=== PATIENT | female | born 1945 | race Caucasian/White ===

== ENCOUNTER 2016-12-03 07:01 | Inpatient (IN) | payer OTHER ==
[~2016-12-03] VITALS: Ht 154.9 cm; Wt 49.0 kg
[2016-12-03] VITALS (42 sets, daily range): BP systolic 85–114; BP diastolic 50–63
[2016-12-03] MEDS ORDERED: methylPREDNISolone SOD SUCC 125 MG/2 ML VIAL IV ONE (07:15)
[2016-12-03 07:21] LABS: ABG BASE EXCESS 6.9 mmol/L; ABG HCO3 30.8 mmol/L; ABG PCO2 41.1 mmHg (35.0-45.0); ABG PH 7.492 (7.350-7.450); ABG PO2 80.3 mmHg (75.0-100.0); ABG SITE LEFT RADIAL; ABG TOTAL HEMOGLOBIN 13.1 G/dL (12.0-16.0); COHb 1.7 % (0.5-1.5); MetHb 0.3 % (0.0-1.5); O2Hb 94.4 % (94.0-97.0)
[2016-12-03] MEDS ORDERED: methylPREDNISolone SOD SUCC 125 MG/2 ML VIAL ONE (07:27)
[2016-12-03 07:35] LABS: BASOPHILS # (AUTO) 0.2 K/uL (0.0-0.2); BASOPHILS % (AUTO) 0.5 % (0.0-2.0); EOSINOPHILS # (AUTO) 0.7 K/uL (0.0-0.7); EOSINOPHILS % (AUTO) 2.2 % (0.0-7.0); HEMATOCRIT 38.3 % (37.0-47.0); RED CELL DISTRIBUTION WIDTH 15.3 % (11.5-14.5)
[2016-12-03] MEDS ORDERED: ASPI81TA31 PO (07:37)
[2016-12-03] MEDS ORDERED: NIFE60TA69 PO (07:37)
[2016-12-03] MEDS ORDERED: OXYC-162 PO (07:37)
[2016-12-03] MEDS ORDERED: GLIP5TAB13 PO (07:37)
[2016-12-03] MEDS ORDERED: KETO5DRO29 OP (07:37)
[2016-12-03] MEDS ORDERED: PRED20TA PO (07:37)
[2016-12-03] MEDS ORDERED: OMEP20CA10 PO (07:37)
[2016-12-03] MEDS ORDERED: BECL8.7A6 INH (07:37)
[2016-12-03] MEDS ORDERED: FURO20TA4 PO (07:37)
[2016-12-03] MEDS ORDERED: IBAN150T8 PO (07:37)
[2016-12-03] MEDS ORDERED: METH2.5T PO (07:37)
[2016-12-03] MEDS ORDERED: OXYC-128 PO (07:39)
[2016-12-03 07:41] LABS: HEMOGLOBIN 12.5 g/dL (12.0-16.0); LYMPHOCYTES # (AUTO) 3.6 K/uL (0.8-4.8); LYMPHOCYTES % (AUTO) 11.9 % (20.5-51.5); MEAN CORPUSCULAR HGB CONC 33 g/dL (32.0-37.0); MONOCYTES # (AUTO) 1.6 K/uL (0.1-1.30); MONOCYTES % (AUTO) 5.2 % (0.0-11.0); NEUTROPHILS # (AUTO) 24.2 K/uL (1.8-8.9); NEUTROPHILS % (AUTO) 80.2 % (38.5-71.5); PLATELET COUNT (AUTO) 260 K/uL (150-450); RED BLOOD CELL COUNT(AUTO) 4.45 MIL/uL (4.20-5.40)
--- NOTE | 2016-12-03 07:42 | NUR ---
PT WAS BROUGHT TO ER AT THIS TIME. PT ABG WAS DONE AND DUE TO RESULTS AND LOW SPO2 ON ROOM AIR PT WAS INTUBATED. PT AT THIS TIME REMAINED ON 15LPM VIA NRB. PT PT WAS INTUBATED BY ER MD DURHAM ET-TUBE 7.5 AT 22CM CENTER LIP LINE. PT WAS PLACE ON GUAN VENT WITH SETTING OF AC20, VT 550, PEEP 5 FIO2 100%. PT AT THIS TIME TOLERATING VENT WELL WILL MILD PIP PRESSURE. PT WAS SUCTION, HME IN PLACE. PT PT VENT ALARM ON AND AUDIBLE AMBU-BAG AT BED SIDE. WILL CONTINUE TO MONITOR PT. WILL REPEAT BAG POST INTUBATION.
[2016-12-03 07:45] LABS: WHITE BLOOD COUNT (AUTO) 30.3 K/uL (4.0-11.2)
[2016-12-03 07:58] LABS: CALCIUM 8.8 mg/dL (8.5-10.1); CREATININE 0.8 mg/dL (0.6-1.3); POTASSIUM 2.9 mmol/L (3.5-5.1)
[2016-12-03] MEDS ORDERED: ETOMIDATE 20 MG/10 ML VIAL IV ONE (08:00)
[2016-12-03] MEDS ORDERED: SUCCINYLCHOLINE CHLORIDE 200 MG/10 ML VIAL IV ONE (08:00)
[2016-12-03] MEDS ORDERED: PROPOFOL 100 ML ONE ×2 (08:07→10:21)
[2016-12-03 08:09] LABS: ALBUMIN 2.8 g/dL (3.4-5.0); BILIRUBIN,DIRECT 0.2 mg/dL (0.0-0.2); BILIRUBIN,TOTAL 0.8 mg/dL (0.2-1.0); TOTAL PROTEIN, SERUM 8.1 g/dL (6.4-8.2)
[2016-12-03] MEDS ORDERED: PROPOFOL 100 ML IV ONE (08:09)
[2016-12-03 08:10] LABS: TROPONIN I 0.266 ng/mL (0.00-0.056)
[2016-12-03] MEDS ORDERED: PROPOFOL 200 MG/20 ML BOTTLE IV ONE (08:15)
[2016-12-03] MEDS ORDERED: GENTAMICIN SULFATE INJ 80 MG in IV DEXTROSE 5% 100 ML IV ONE (08:30)
[2016-12-03] MEDS ORDERED: METRONIDAZOLE 500 MG/NS 100ML 100 ML IV ONE ×2 (08:30→09:00)
[2016-12-03] MEDS ORDERED: MEROPENEM 1,000 MG in IV NORMAL SALINE 250 ML IV ONE (08:30)
[2016-12-03 08:31] LABS: ABG BASE EXCESS 0.1 mmol/L; ABG HCO3 25.4 mmol/L; ABG PCO2 43.6 mmHg (35.0-45.0); ABG PH 7.383 (7.350-7.450); ABG PO2 146.8 mmHg (75.0-100.0); ABG SITE RIGHT RADIAL; ABG TOTAL HEMOGLOBIN 12.4 G/dL (12.0-16.0); COHb 1.1 % (0.5-1.5); MetHb 0.3 % (0.0-1.5); O2Hb 97.6 % (94.0-97.0); VENT MODE VENT - A/C; VT, ABG 550 mL
[2016-12-03 08:31] LABS: *BILIRUBIN,URIN NEGATIVE (NEGATIVE); *BLOOD, URINE Trace-intact (NEGATIVE); *CLARITY,URINE SLIGHTLY CLOUDY (CLEAR); *COLOR,URINE YELLOW (YELLOW); *KETONES,URINE NEGATIVE (NEGATIVE); *PROTEIN,URINE 2+ (NEGATIVE); LEUKOCYTE ESTERASE ,URINE NEGATIVE (NEGATIVE); NITRITE, URINE NEGATIVE (NEGATIVE); UGLUCOSE NEGATIVE (NEGATIVE)
--- NOTE | 2016-12-03 08:34 | NUR ---
PT ABG POST INTUBATION WAS DONE AND DUE TO RESULTS PT FIO2 WAS TITRATED DOWN PER MD REQUEST TO 80% RN AWARE. WILL CONTINUE TO MONITOR PT. NO DISTRESS NOTED AT THIS TIME.
[2016-12-03] MEDS ORDERED: FENTANYL CITRATE 100 MCG/2 ML AMPUL ONE (08:35)
[2016-12-03 08:39] LABS: BACTERIA,URINE FEW /HPF (NONE SEEN); MUCUS,URINE FEW /LPF (0-FEW); RBC,URINE 0-3 /HPF (0-3); SQUAMOUS EPITHELIAL CELL,UR FEW /HPF (NONE SEEN); WBC,URINE 0-3 /HPF (0-3)
[2016-12-03 08:54] LABS: LACTIC ACID 2.9 mmol/L (0.4-2.0)
[2016-12-03] MEDS ORDERED: SERT50TA14 PO (08:59)
[2016-12-03] MEDS ORDERED: IV NORMAL SALINE 1000 ML BAG IV ONE ×2 (09:00→10:15)
--- NOTE | 2016-12-03 09:16 | NUR ---
BP is trending down, Dr Wise notified.
--- NOTE | 2016-12-03 09:26 | NUR ---
Patient is for central line insertion per MD.
[2016-12-03] MEDS ORDERED: NOREPINEPHRINE BITARTRATE 8 MG in IV DEXTROSE 5% 500 ML IV ONE (10:15)
--- NOTE | 2016-12-03 10:50 | NUR ---
RECIEVED REPORT FROM JORDAN IN ER.
--- NOTE | 2016-12-03 10:59 | NUR ---
Patient left ER with 2 RN's and 2 resp therapists in critical condition. Transport cardiac cath lab manager is connected to the patient- alarms set,on & audible. IVF-saline bolus is still infusing, Levophed drip Propofol drip and antibiotic medicines are also infusing enroute to CCU.
[2016-12-03] MEDS ORDERED: FENTANYL CITRATE 100 MCG/2 ML AMPUL IV PRN (11:15)
[2016-12-03 11:16] LABS: ANISOCYTOSIS 1+; BAND % (MANUAL) 1 % (0-10); EOSINOPHILS % (MANUAL) 1 % (0-8); LYMPHOCYTES % (MANUAL) 11 % (20-40); MONOCYTES % (MANUAL) 6 % (2-10); NEUTROPHILS % (MANUAL) 81 % (42-75); PLATELET ESTIMATE ADEQUATE
--- NOTE | 2016-12-03 11:50 | NUR ---
ADMIT PT FROM ER [facility]IA [facility] TO CCU5. A 70 YR OLD FEMALE WITH CHIEF C/O SOB THRROUGH THE NIGHT. PT IS INTUBATED AND SEDATED BUT PT IS AROUSABLE TO DEEP STIMULATION.
--- NOTE | 2016-12-03 12:00 | NUR ---
HR IS SR. PT ON LEVOPHED DRIP AT 2MCG/MIN VIA THE FEMORAL LINE. PT ALSO ON PROPOFOL DRIPN AT 50MCG/KG/MIN.. VENT SETTING IS AC-20. VT-550, FIO2-100%. LUNG HAS SCATTERED RALES. SUCTIONED PINKISH TINGED SECRETIONS ORALLY AND VIA THE ETT. AFEBRILE. SBP UNDER CONTROL.
--- NOTE | 2016-12-03 14:00 | NUR ---
SEEN AND EXAMINED BY DR OEJDA. INFORMED HIM ABOUT THE LOW POTASSIUM RESULT.
--- NOTE | 2016-12-03 15:13 | NUR ---
PT TOLERATING VENT WELL NO DISTRESS NOTED NO CHANGES MADE AT THIS TIME . PT CARE TRANSFER TO RT NAZIA AND RT LEWIS. RT AWARE OF ABG AT [address] ORDER. WILL GIVE REPORT REGARDING ORDERS TO RT CONTINUING CARE.
[2016-12-03] MEDS ORDERED: NOREPINEPHRINE BITARTRATE 8 MG in IV DEXTROSE 5% 500 ML IV PRN (15:45)
--- NOTE | 2016-12-03 16:00 | NUR ---
SEEN AND EXAMINED BY DR DESOUZA WITH NEW ORDERS. CONSENT SIGNED BY THE FAMILY FOR THE CTA ANGIOGRAM. PENDING TEST AWAITING THE AVAILABITITY OF THE INJECTOR MACHINE.
--- NOTE | 2016-12-03 16:37 | NUR ---
VENT CHANGES DONE PER MD ORDERS. CALLED DR. DESOUZA TO VERIFY VENT CHANGES TO AC 28, VT 400, 75% FIO2, AND TO KEEP PEEP +5. PATIENT IS TOLERATING VENT SETTINGS WELL AT THIS TIME. SPO2 RANGES 99-100%. ABG ORDER FOR 1700. WILL CONTINUE TO MONITOR.
[2016-12-03] MEDS: PROPOFOL 100 ML IV PRN ×2 (16:44→23:16)
[2016-12-03 17:35] LABS: ABG HCO3 25.6 mmol/L; ABG PCO2 40.7 mmHg (35.0-45.0); ABG PH 7.417 (7.350-7.450); ABG PO2 179.2 mmHg (75.0-100.0); ABG SITE LEFT RADIAL; ABG TOTAL HEMOGLOBIN 12.8 G/dL (12.0-16.0); MetHb 0.3 % (0.0-1.5); O2Hb 98.2 % (94.0-97.0); VENT MODE VENT - A/C; VT, ABG 400 mL
--- NOTE | 2016-12-03 18:00 | NUR ---
SEEN AND EXAMINED BY DR MCDONALD WITH NEW ORDERS.
[2016-12-03] MEDS ORDERED: NORMAL SALINE FLUSH 10 ML DISP.SYRIN ONE (18:04)
[2016-12-03] MEDS ORDERED: IOHEXOL 350 100 ML INFUS..BTL ONE (18:04)
[2016-12-03] MEDS ORDERED: IV NORMAL SALINE 250 ML IV ONE (18:04)
--- NOTE | 2016-12-03 18:25 | NUR ---
PT BROUGHT DOWN TO CT FOR CTA ANGIOGRAM VIA BED. CONDITION IS STABLE.
--- NOTE | 2016-12-03 18:35 | NUR ---
PT TRANSFERRED FOR CT-SCAN WITH NO ISSUES NOTED. ASSISTED BY RT MANDUJANO. NO COMPLICATIONS DURING TRANSPORT TO AND FROM CT-SCAN. NO S/S OF RESPIRATORY DISTRESS DURING TRANSPORT. AMBU BAG AT BEDSIDE.
[2016-12-03] MEDS: POTASSIUM CHLORIDE 50 ML IV SCH ×4 (18:50→22:05)
--- NOTE | 2016-12-03 19:30 | NUR ---
Report received. Patient orally intubated and to mechanical ventilator. Settings as follows: GX=231 ml, FIO2=75%, Ac=28 and PEEP=5 cm. Sedated with Diprivan drip @ 50 mcg/kg/min. On Levophed drip for BP support. Assessment completed. Addendum: 12/04/16 at 0002 by SELENA WHEELER RN Amended: Links added.
--- NOTE | 2016-12-03 19:35 | NUR ---
Pt received on Bagley vent with current settings of AC 28, VT 400, FiO2 75%, Peep +5. Per order to keep saturation above 92%, titrated FiO2 to 65% at this time. Saturation steady at 99%. RN Dawna aware of change. No other changes made to vent settings, pt tolerating settings well. Pt is orally intubated with a 7.5 ETT, secured with [place] Fast at approximately 22cm at the lip line. ETT is patent. Suctioned pt with minimal amount of pale secretions. Oral care done. HME changed. Vent alarm parameters checked, functioning and audible. Will continue to monitor pt throughout shift.
--- NOTE | 2016-12-03 19:45 | NUR ---
Suctioned by Mahendra LEON; ETT aspirate obtained. FIO2 titrated down to 65% to keep sat above 92%. Sat 98-100% on 75%. Specimen sent to lab for C/S. Addendum: 12/04/16 at 0005 by SELENA WHEELER RN Amended: Links added.
--- NOTE | 2016-12-03 20:06 | NUR ---
Dr. Holloway radiologist called with CTA chest results. Patient's sister visited. Addendum: 12/03/16 at 2358 by SELENA WHEELER RN Amended: Links added. Addendum: 12/04/16 at 0002 by SELENA WHEELER RN Amended: Links added.
--- NOTE | 2016-12-03 20:30 | NUR ---
Call placed to Dr. Boyd's exchange re: CTA results. Addendum: 12/04/16 at 0007 by SELENA WHEELER RN Amended: Links added. Addendum: 12/04/16 at 0022 by SELENA WHEELER RN Amended: Links added. Addendum: 12/04/16 at 0026 by SELENA WHEELER RN Amended: Links added. Addendum: 12/04/16 at 0031 by SELENA WHEELER RN Amended: Links added.
[2016-12-03] MEDS ORDERED: ACETAMINOPHEN 650 MG SUPP.RECT RC PRN (20:45)
[2016-12-03] MEDS ORDERED: POTASSIUM CHLORIDE 20 MEQ in IV D5/ 0.9% NACL 1,000 ML IV PRN (20:45)
[2016-12-03] MEDS ORDERED: ONDANSETRON 4 MG/2 ML VIAL IV PRN (20:45)
[2016-12-03] MEDS ORDERED: MORPHINE SULFATE 2 MG/1 ML DISP.SYRIN IV PRN (20:45)
--- NOTE | 2016-12-03 20:50 | NUR ---
Dr. Cook division plant engineer for Dr. Boyd called back. Results of CTA relayed to him. No orders given. Addendum: 12/03/16 at 2100 by SELENA WHEELER RN Amended: Links added.
[2016-12-03] MEDS ORDERED: Z GUARD REMEDY PASTE 57 GM TUBE TOP PRN (21:00)
[2016-12-03] MEDS ORDERED: MEROPENEM 1 G in IV NORMAL SALINE 100 ML IV SCH (21:00)
[2016-12-03] MEDS ORDERED: ENOXAPARIN SODIUM 40 MG/0.4 ML DISP.SYRIN SQ SCH (21:00)
[2016-12-03] MEDS: Z GUARD REMEDY PASTE 57 GM TUBE TOP SCH (21:03)
--- NOTE | 2016-12-03 21:05 | NUR ---
Spoke to Dr. Cook again re: further results of CTA chest which is large pericardial effusion 2.3 cm. Advised RN to notify cardiology of result. Call placed to Dr. Moore. Addendum: 12/04/16 at 0026 by SELENA WHEELER RN Amended: Links added. Addendum: 12/04/16 at 0031 by SELENA WHEELER RN Amended: Links added.
[2016-12-03] MEDS ORDERED: DEXTROSE 50% 50 ML DISP.SYRIN IV PRN (21:15)
--- NOTE | 2016-12-03 21:22 | NUR ---
Clinical Pharmacy Note: Vancomycin Dosing per Pharmacy Subjective: Vancomycin IV to start on this patient for sepsis 70 yo female ht 61 '' wt 108 lb Objective: BUN 15/Scr 0.9 WBC 30.3 Temperature 98.5 Assessment/Plan: Will start vancomycin 750mg IVPB Q23hr for a predicted vancomycin steady state trough level of 15mcg/ml. First dose is due today at 2200. Will draw a vancomycin trough level prior to the 4th dose of vancomycin (not ordered yet). Will monitor renal function and adjust vancomycin dose, if needed, should renal function change significantly. Will follow daily.
--- NOTE | 2016-12-03 21:30 | NUR ---
BPs 80's systole. Levophed drip titrated up. BPs monitored closely. Addendum: 12/03/16 at 2355 by SELENA WHEELER RN Amended: Links added.
--- NOTE | 2016-12-03 21:45 | NUR ---
Dr. Moore called back. Informed of CTA results and patient's condition. No new orders. Addendum: 12/04/16 at 0031 by SELENA WHEELER RN Amended: Links added.
[2016-12-03] MEDS ORDERED: VANCOMYCIN IV 750 MG in IV DEXTROSE 5% 250 ML IV SCH (22:00)
[2016-12-03] MEDS: methylPREDNISolone SOD SUCC 40 MG/ML VIAL IV SCH (22:08)
[2016-12-03] MEDS: BLOOD SUGAR DIAGNOSTIC 1 EACH STRIP VI SCH (23:34)
[2016-12-04] VITALS (63 sets, daily range): BP systolic 96–131; BP diastolic 52–72
--- NOTE | 2016-12-04 | NUR ---
Grimaces to pain such as suctioning and turning but doesn't open eyes. Levophed drip remains at 3 mcg/min. Addendum: 12/04/16 at 0703 by SELENA WHEELER RN Amended: Links added.
--- NOTE | 2016-12-04 04:00 | NUR ---
Am care done. With good cough reflex during suctioning. Condition unchanged. Addendum: 12/04/16 at 0708 by SELENA WHEELER RN Amended: Links added.
[2016-12-04 05:11] LABS: BASOPHILS # (AUTO) 0.1 K/uL (0.0-0.2); BASOPHILS % (AUTO) 0.2 % (0.0-2.0); EOSINOPHILS # (AUTO) 0.1 K/uL (0.0-0.7); HEMOGLOBIN 11.6 g/dL (12.0-16.0)
[2016-12-04 05:12] LABS: ALBUMIN 2.2 g/dL (3.4-5.0); BILIRUBIN,TOTAL 0.3 mg/dL (0.2-1.0); CALCIUM 7.4 mg/dL (8.5-10.1); CREATININE 0.7 mg/dL (0.6-1.3); MAGNESIUM 1.6 mg/dL (1.8-2.4); PHOSPHOROUS 3.6 mg/dL (2.5-4.9); POTASSIUM 4.5 mmol/L (3.5-5.1)
[2016-12-04 05:13] LABS: EOSINOPHILS % (AUTO) 0.2 % (0.0-7.0); HEMATOCRIT 34.9 % (37.0-47.0); LYMPHOCYTES # (AUTO) 2.1 K/uL (0.8-4.8); MEAN CORPUSCULAR HGB CONC 33 g/dL (32.0-37.0); MEAN CORPUSCULAR VOLUME 87.4 fL (81.0-99.0); MONOCYTES % (AUTO) 3.4 % (0.0-11.0); NEUTROPHILS # (AUTO) 26.8 K/uL (1.8-8.9); NEUTROPHILS % (AUTO) 89.2 % (38.5-71.5); PLATELET COUNT (AUTO) 266 K/uL (150-450); RED BLOOD CELL COUNT(AUTO) 3.99 MIL/uL (4.20-5.40); RED CELL DISTRIBUTION WIDTH 15.4 % (11.5-14.5)
[2016-12-04 05:26] LABS: THYROID STIMULATING HORMONE 1.053 mIU/mL (0.358-3.740)
[2016-12-04] MEDS: BLOOD SUGAR DIAGNOSTIC 1 EACH STRIP VI SCH ×2 (05:29→13:31)
[2016-12-04 05:40] LABS: BAND % (MANUAL) 4 % (0-10); LYMPHOCYTES % (MANUAL) 7 % (20-40); MONOCYTES % (MANUAL) 2 % (2-10); NEUTROPHILS % (MANUAL) 87 % (42-75)
[2016-12-04 05:41] LABS: ANISOCYTOSIS 1+; PLATELET ESTIMATE ADEQUATE
[2016-12-04] MEDS: methylPREDNISolone SOD SUCC 40 MG/ML VIAL IV SCH ×2 (05:41→13:34)
[2016-12-04] MEDS: INSULIN REGULAR, HUMAN 300 UNIT/3 ML VIAL SQ PRN ×2 (05:42→13:36)
[2016-12-04] MEDS: PROPOFOL 100 ML IV PRN ×2 (05:45→12:13)
--- NOTE | 2016-12-04 05:59 | NUR ---
Pt remains on Bagley vent with current settings, FiO2 was titrated at 1940 to 65%, with saturations steady at 99-100%. At 0110, FiO2 was titrated to 55%, with saturations steady at 100%. At 0520, FiO2 was titrated to 45%, with saturations at 98%. PETER Toney was notified and aware of changes. No respiratory distress noted throughout shift. Suctioned pt routinely with small amount of pale secretions. Changed HME and suction lundy. Vent alarms are audible and functioning.
--- NOTE | 2016-12-04 06:00 | NUR ---
Patient's sister visited; updated of patient's condition. No neuro changes. Diprivan drip remains at 50 mcg/kg/min. and Levophed drip at 3 mcg/min. Addendum: 12/04/16 at 0723 by SELENA WHEELER RN Amended: Links added.
--- NOTE | 2016-12-04 07:35 | NUR ---
Pt received in bed, laying semi-Melendez's, sleeping at this time.. Pt orally intubated, ETT 7.5 approx 23 at the lip, ETT in place and secure with [place] Fast, moved to center of mouth, no breakdown or irritation noted under/around face pads.. Mechanically ventilated with vent: Bagley, settings: A/C 28, Vt 400, PEEP +5, FiO2 45%, tolerating well at this time, no changes made.. Vent alarms on/audible and functioning properly at this time.. Will continue to monitor..
--- NOTE | 2016-12-04 08:00 | NUR ---
SEEN AND EXAMINED BY DR GEORGE ID WITH NEW LAB ORDERS. LAB TEST FOR AFB CULLTURE SMEARS AND QUANTEFERON TB GOLD. NOTIFIED [facility] INFECTION CONTROL DRAPERY HANGER. PT PLACED ON A NEGATIVE AIR FLOW VENT ROOM. NOTIFIED THE CHANNEL CEMENTER KRYSTINA AND ALSO THE ANALYTICS LEAD.
[2016-12-04] MEDS: Z GUARD REMEDY PASTE 57 GM TUBE TOP SCH (08:10)
[2016-12-04] MEDS ORDERED: LEVOFLOXACIN 500 MG/D5W 500 MG in PREMIXED 1 EACH IV SCH (09:00)
[2016-12-04] MEDS ORDERED: ASPIRIN 300 MG RECTAL SUPP RC SCH (09:00)
[2016-12-04] MEDS ORDERED: PANTOPRAZOLE SODIUM 40 MG VIAL IV SCH (09:00)
[2016-12-04] MEDS: MAGNESIUM SULFATE/D5W 100 ML IV SCH ×2 (09:33→11:10)
[2016-12-04 10:20] LABS: ABG BASE EXCESS 1.4 mmol/L; ABG HCO3 25.9 mmol/L; ABG PCO2 40.4 mmHg (35.0-45.0); ABG PH 7.425 (7.350-7.450); ABG PO2 88.4 mmHg (75.0-100.0); ABG SITE LEFT RADIAL; ABG TOTAL HEMOGLOBIN 12.6 G/dL (12.0-16.0); MetHb 0.2 % (0.0-1.5); VENT MODE VENT - A/C; VT, ABG 400 mL
--- NOTE | 2016-12-04 10:45 | NUR ---
SEEN AND EXAMINED BY DR DESOUZA WITH NEW ORDERS.
[2016-12-04] MEDS ORDERED: ACET650S24 RC (11:34)
[2016-12-04] MEDS ORDERED: RXVAN XX (11:34)
[2016-12-04] MEDS ORDERED: MERO1VIA IV (11:34)
[2016-12-04] MEDS ORDERED: Morphine Sulfate IV (11:34)
[2016-12-04] MEDS ORDERED: ASPI300S RC (11:34)
[2016-12-04] MEDS ORDERED: ENOX40DI SQ (11:34)
[2016-12-04] MEDS ORDERED: MENT71OI TOP ×2 (11:34)
[2016-12-04] MEDS ORDERED: DEXT50DI8 IV (11:34)
[2016-12-04] MEDS ORDERED: Blood Sugar Diagnostic VI (11:34)
[2016-12-04] MEDS ORDERED: INSU100V28 SQ (11:34)
[2016-12-04] MEDS ORDERED: Methylprednisolone Sod Succ IV (11:34)
[2016-12-04] MEDS ORDERED: PANT40VI IV (11:34)
--- NOTE | 2016-12-04 12:00 | NUR ---
Had been in contact with [facility] Sandy SAXENA [ ; ], about the patient needing a negative flow room and she is arranging for her to be transferred to [facility]. She stated that she already has an admitting MD but no beds at this time. She will call the unit once a bed is available. Updated the patient's RN, Salma.
--- NOTE | 2016-12-04 13:00 | NUR ---
FAMILY AT THE BEDSIDE. MADE AWARE OF THE PLANS FOR PT TO BE TRANSFERRED TO [facility].
[2016-12-04] MEDS ORDERED: MEROPENEM 1 G in IV NORMAL SALINE 100 ML IV SCH (14:00)
--- NOTE | 2016-12-04 14:00 | NUR ---
CHART COPIED AND EXIT CARE DONE. AFB CULTURE SMEAR DONE AND SENT TO LAB.
--- NOTE | 2016-12-04 15:30 | NUR ---
REPORT GIVEN TO SREE GREEN AT [facility]. NOTIFIED THE FAMILY OF THE TIME BLACKJACK SUPERVISOR.
--- NOTE | 2016-12-04 16:00 | NUR ---
[facility] HERE TO RESEARCH DIRECTOR THE PT. DISCHARGE TO [place], CONDITION IS UNCHANGED.
--- NOTE | 2016-12-04 17:12 | NUR ---
Clinical Pharmacy Note: Vancomycin Dosing per Pharmacy Subjective: Vancomycin IV to continue on this patient for sepsis 70 yo female ht 61 '' wt 108 lb Objective: BUN 11/Scr 0.7 WBC 30. Temperature 98.2 Assessment/Plan: Will continue vancomycin 750mg IVPB Q23hr for a predicted vancomycin steady state trough level of 15mcg/ml. Second dose is due today at 2100. Will draw a vancomycin trough level prior to the 4th dose of vancomycin (not ordered yet). Will monitor renal function and adjust vancomycin dose, if needed, should renal function change significantly. Will follow daily.
== END 2016-12-04 17:30 | disposition short-term general hospital (02) | DRG 871 ==
LOC: ER 07:03 → CCU 10:46
PROVIDERS: ADMIT Internal Medicine; ATTEND Internal Medicine
PROC: 5A1945Z Respiratory Ventilation, 24-96 Consecutive Hours (ICD-10-PCS; principal; 2016-12-03)
PROC: 0BH17EZ Insertion of Endotracheal Airway into Trachea, Via Natural or Artificial Opening (ICD-10-PCS; 2016-12-03)
PROC: 06HM33Z Insertion of Infusion Device into Right Femoral Vein, Percutaneous Approach (ICD-10-PCS; 2016-12-03)
PROC: B54BZZA Ultrasonography of Right Lower Extremity Veins, Guidance (ICD-10-PCS; 2016-12-03)
DX: A41.9 Sepsis, unspecified organism (principal); J69.0 Pneumonitis due to inhalation of food and vomit; J96.01 Acute respiratory failure with hypoxia; I21.4 Non-ST elevation (NSTEMI) myocardial infarction; R65.21 Severe sepsis with septic shock; M33.20 Polymyositis, organ involvement unspecified; I31.3 Pericardial effusion (noninflammatory); I50.30 Unspecified diastolic (congestive) heart failure; E11.9 Type 2 diabetes mellitus without complications; E87.6 Hypokalemia; F32.9 Major depressive disorder, single episode, unspecified; T38.0X5A Adverse effect of glucocorticoids and synthetic analogues, initial encounter; Z79.84 Long term (current) use of oral hypoglycemic drugs; Z88.0 Allergy status to penicillin; K21.9 Gastro-esophageal reflux disease without esophagitis; I73.00 Raynaud's syndrome without gangrene; R74.0 Nonspecific elevation of levels of transaminase and lactic acid dehydrogenase [LDH]; Z79.899 Other long term (current) drug therapy
CPT/HCPCS: 36415; 36600; 51702; 70030-TC; 71010; 71275; 83605; 83735; 84100; 84443; 85025; 87040; 87070; 87086; 93005; 93307; 94002; 94003; A4663; C1751; C9113; J1580; J1650; J1815; J1956; J2185; J2920; J2930; J3010; J3370; J3475; J3480; J3490; J7030; J7042; J7050; J7060; Q9967